=== PATIENT | female | born 1950 | race Caucasian/White ===

== ENCOUNTER → 2016-08-12 | Outpatient (CLI) | payer MEDICARE ==
--- NOTE | 2016-08-13 13:04 | MM ---
Reason for exam: screening (asymptomatic). Last mammogram was performed 1 year and 11 months ago. History: Patient is postmenopausal. Took estrogen for 6 years 7 months beginning at age 49. Took progesterone for 6 years 7 months beginning at age 49. Physical Findings: A clinical breast exam by your physician is recommended on an annual basis and results should be correlated with mammographic findings. MG 3D Screening Mammo W/Cad Bilateral CC and MLO view(s) were taken. Prior study comparison: September 19, 2014, bilateral MG screening mammo w CAD. June 01, 2013, bilateral digital screening mammo w/CAD. There are scattered fibroglandular densities. There is no discrete abnormality. ASSESSMENT: Negative, BI-RAD 1 RECOMMENDATION: Routine screening mammogram of both breasts in 1 year.
== END | disposition home or self-care (01) ==
LOC: RADMAMWWP 13:26
PROVIDERS: ATTEND Internal Medicine
DX: Z12.31 Encounter for screening mammogram for malignant neoplasm of breast (principal)
CPT/HCPCS: 77063; G0202

== ENCOUNTER → 2016-09-06 | Outpatient (CLI) | payer MEDICARE ==
--- NOTE | 2016-09-06 11:49 | CT ---
EXAMINATION TYPE: CT sinus wo con DATE OF EXAM: 09/06/2016 9:50 AM COMPARISON: NONE HISTORY: Chronic Sinusitis CT DLP: 583.7 mGycm CONTRAST: None The paranasal sinuses are examined in the axial plane at 2 mm thick sections. Reconstructed images i n the coronal plane were obtained. There is dental amalgam scatter artifact The maxillary sinuses are clear. There is some opacification of a posterior left ethmoid air cell. B ilateral ethmoidectomies been performed. Bilateral uncinectomies been performed. The sphenoid sinuse s are clear. The frontal sinuses are clear. The right frontal sinus is aplastic. The septum is evaluated. There is mild septal deviation. IMPRESSIONS: 1. Postsurgical changes with bilateral uncinectomies and ethmoidectomies. 2. Significant mucosal thickening within the paranasal sinuses is not evident. Some mild opacificatio n is within left ethmoid air cell residuals.
== END | disposition home or self-care (01) ==
LOC: RADCTMAIN 09:28
PROVIDERS: ATTEND Otolaryngology
DX: J34.89 Other specified disorders of nose and nasal sinuses (principal); J32.9 Chronic sinusitis, unspecified; Z98.890 Other specified postprocedural states
CPT/HCPCS: 70486

== ENCOUNTER 2016-11-04 09:56 | Day surgery (SDC) | payer MEDICARE ==
[2016-11-01 15:13] VITALS: BMI 22.6
[~2016-11-04 09:56] MED LIST: ACETAMINOPHEN TAB 500 MG TAB PO ONE; DEXAMETHASONE SOD PHOSPHATE 10 MG/ML 1 ML VIAL IV ONE; DEXAMETHASONE SOD PHOSPHATE 4 MG/ML 1 ML VIAL IV ONE; FAMOTIDINE 20 MG/2 ML VIAL IV ONE; HYDROmorphone 1 MG/ML 1 ML SYRINGE IVP PRN; LACTATED RINGERS 1,000 ML IV SCH; ONDANSETRON 4 MG/2 ML VIAL IVP ONE; OXYMETAZOLINE 0.05% NASL SPRAY 15 ML ONE; Pre Op ABX Message 1 EACH MISC MISCELLANE ONE
[2016-11-04] MEDS ORDERED: LIDOCAINE 1% 20 ML VIAL (10MG/ML) FOR IV START INTRADERMA ONE (13:54)
[2016-11-04] MEDS: OXYMETAZOLINE 0.05% NASL SPRAY 15 ML NASAL ONE ×5 (13:54→14:24)
[2016-11-04] MEDS ORDERED: fentaNYL (PF) 50 MCG/ML 2 ML AMP ONE (15:32)
[2016-11-04] MEDS ORDERED: SUCCINYLCHOLINE CHLORIDE 100 MG/5 ML SYR IV ONE (15:32)
[2016-11-04] MEDS ORDERED: ROCURONIUM BROMIDE 10 MG/ML 10 ML VIAL IV ONE (15:32)
[2016-11-04] MEDS ORDERED: LIDOCAINE 1% INJ 10MG/ML (20 ML MDV) ONE (15:32)
[2016-11-04] MEDS ORDERED: NEOSTIGMINE 1 MG/ML 10 ML VIAL ONE (15:32)
[2016-11-04] MEDS ORDERED: EPINEPHrine 1 MG/ML (MDV) 30 ML VIAL TOPICAL ONE (15:32)
[2016-11-04] MEDS ORDERED: DEXAMETHASONE SOD PHOS (MDV) 100 MG/10 ML VIAL ONE (15:32)
[2016-11-04] MEDS ORDERED: MIDAZOLAM 2 MG/2 ML VIAL ONE (15:32)
[2016-11-04] MEDS ORDERED: BUPIVACAIN-EPI 0.5%-1:200,000 30 ML VIAL SQ ONE (15:32)
[2016-11-04] MEDS ORDERED: PROPOFOL 10 MG/ML 20 ML VIAL IV ONE (15:32)
[2016-11-04] MEDS ORDERED: GLYCOPYRROLATE 0.2 MG/ML 2 ML VIAL ONE (15:32)
[2016-11-04] MEDS ORDERED: LIDOCAINE 1%-EPI 1:100,000 20 ML VIAL SQ ONE (15:32)
[2016-11-04] MEDS ORDERED: EPINEPHrine (PF) 1 MG/ML AMP MISCELLANE ONE (15:32)
[2016-11-04] MEDS ORDERED: LACTATED RINGERS 1,000 ML IV ONE (16:26)
--- NOTE | 2016-11-04 16:37 | P.OP ---
Date of Procedure: 11/04/16 Preoperative Diagnosis: Chronic maxillary and ethmoid sinusitis Postoperative Diagnosis: Same Procedure(s) Performed: Functional endoscopic sinus surgery with total ethmoidectomy and maxillary antrostomies with removal of diseased tissue bilaterally Anesthesia: LEONORA Surgeon: Kurtis Wilcox Estimated Blood Loss (ml): 25 Pathology: other (Sinonasal) Condition: stable Indications for Procedure: This patient's been suffering with chronic sinus issues. She is midface pain pressure drainage discolored postnasal drainage. Her sense of smell is absent. CAT scan evaluation shows chronic sinusitis maxillary ethmoid. Has failed medical therapy. Operative Findings: Patient had thick and diseased mucosa the maxillary and ethmoid sinuses bilaterally Description of Procedure: This patient was taken to the operative room and placed in the supine position. A general inhalation anesthetic was administered to the patient by mask and subsequently intubated with a cuffed endotracheal tube by the department of anesthesia with a functioning IV line in place. The patient was monitored throughout the entire case by the department of anesthesia. The nose was topically anesthetized and then injected along the lateral nasal wall middle turbinate region. After 10 minutes were allowed wait for full vasoconstrictive effects to take place infraturbinal maxillary antrostomies were performed bilaterally with a Reynaldo an antral punch. We open and widened the infraturbinal maxillary antrostomies entered max her sinuses and removed diseased tissue. We then opened the supraturbinal region and the x-ray sinuses were opened both above and below the inferior turbinates with diseased tissue removed. We then did a total ethmoidectomy and entered the ethmoids and followed the fovea frontalis through the basal lamella into the posterior ethmoid air cells. A total ethmoidectomy was performed. We removed all the intersinus septations and diseased tissue of the anterior posterior ethmoids bilaterally. The patient tolerated this well and the follow-up is scheduled for 1 week. Xerogel was inserted. Patient is to contact me if any problems should arise in the interim.
[2016-11-04 16:41] VITALS: TEMP 98.1
[2016-11-04 16:52] VITALS: RESP 18
[2016-11-04 17:20] VITALS: PULSE 57
[2016-11-04 17:35] VITALS: BP 131/65
== END 2016-11-04 17:52 | disposition home or self-care (01) ==
LOC: OR 09:56
PROVIDERS: ATTEND Otolaryngology
DX: J32.0 Chronic maxillary sinusitis (principal); J32.2 Chronic ethmoidal sinusitis; E07.9 Disorder of thyroid, unspecified; F39 Unspecified mood [affective] disorder; Z79.899 Other long term (current) drug therapy
CPT/HCPCS: 31267; 31255; J0171; J2250; J1100 ×2; J2710; J2001; J3010; J0330; J2704; 88305

== ENCOUNTER → 2018-01-17 | Outpatient (CLI) | payer MEDICARE ==
--- NOTE | 2018-01-19 11:47 | MM ---
Reason for exam: screening (asymptomatic). Last mammogram was performed 1 year and 5 months ago. History: Patient is postmenopausal. Took estrogen for 6 years 7 months beginning at age 49. Took progesterone for 6 years 7 months beginning at age 49. Physical Findings: A clinical breast exam by your physician is recommended on an annual basis and results should be correlated with mammographic findings. MG 3D Screening Mammo W/Cad Bilateral CC and MLO view(s) were taken. Prior study comparison: August 12, 2016, bilateral MG 3d screening mammo w/cad. September 19, 2014, bilateral MG screening mammo w CAD. There are scattered fibroglandular densities. No significant changes when compared with prior studies. ASSESSMENT: Negative, BI-RAD 1 RECOMMENDATION: Routine screening mammogram of both breasts in 1 year.
== END | disposition home or self-care (01) ==
LOC: RADMAMWWP 10:47
PROVIDERS: ATTEND Obstetrics & Gynecology
DX: Z12.31 Encounter for screening mammogram for malignant neoplasm of breast (principal)
CPT/HCPCS: 77063; 77067

== ENCOUNTER 2019-02-14 08:27 | Day surgery (SDC) | payer MEDICARE ==
[2019-02-12 09:02] VITALS: BMI 22.1
[~2019-02-14 08:27] MED LIST changes: -ACETAMINOPHEN TAB 500 MG TAB PO ONE; -DEXAMETHASONE SOD PHOSPHATE 10 MG/ML 1 ML VIAL IV ONE; -DEXAMETHASONE SOD PHOSPHATE 4 MG/ML 1 ML VIAL IV ONE; -FAMOTIDINE 20 MG/2 ML VIAL IV ONE; -HYDROmorphone 1 MG/ML 1 ML SYRINGE IVP PRN; +LIDOCAINE 1% 20 ML VIAL (10MG/ML) FOR IV START INTRADERMA PRN; -ONDANSETRON 4 MG/2 ML VIAL IVP ONE; -OXYMETAZOLINE 0.05% NASL SPRAY 15 ML ONE; -Pre Op ABX Message 1 EACH MISC MISCELLANE ONE
[2019-02-14] MEDS ORDERED: LACTATED RINGERS 1,000 ML IV ONE (08:38)
[2019-02-14] MEDS ORDERED: LIDOCAINE 1% 20 ML VIAL (10MG/ML) FOR IV START INTRADERMA ONE (08:39)
[2019-02-14 08:44] VITALS: TEMP 97.5
[2019-02-14] MEDS ORDERED: PROPOFOL 10 MG/ML 20 ML VIAL IV ONE (09:00)
[2019-02-14 09:25] VITALS: PULSE 65
[2019-02-14 09:36] VITALS: BP 106/69; RESP 16
--- NOTE | 2019-02-14 10:02 | P.PCN ---
Date of Procedure: 02/14/19 Procedure(s) Performed: BRIEF HISTORY: Patient is a 68-year-old pleasant female, scheduled for an elective colonoscopy as a part of screening for colorectal neoplasia. PROCEDURE PERFORMED: Colonoscopy. PREOPERATIVE DIAGNOSIS: Screening for colon cancer. IV sedation per Anesthesia. PROCEDURE: After informed consent was obtained, the patient, was brought into the endoscopy unit. IV sedation was administered by Anesthesia under continuous monitoring. Digital rectal examination was normal. Initially the Olympus CF-160 flexible video colonoscope was then inserted in the rectum, gradually advanced into the cecum without any difficulty. Careful examination was performed as the scope was gradually being withdrawn. Ileocecal valve and the appendiceal orifice were visualized and appeared normal. Prep was excellent. Mucosa of the cecum, ascending colon, transverse colon, descending colon, sigmoid colon, and rectum appeared normal. Retroflexion was performed in the rectum and no lesions were seen. The patient tolerated the procedure well. IMPRESSION: Normal-appearing colon from rectum to cecum with no evidence of colorectal neoplasia . RECOMMENDATIONS: Findings of this examination were discussed with the patient as well as her family. She was advised to have a repeat screening colonoscopy in 10 years.
== END 2019-02-14 09:50 | disposition home or self-care (01) ==
LOC: ORWHC2ENDO 08:27
PROVIDERS: ATTEND Internal Medicine Gastroenterology
DX: Z12.11 Encounter for screening for malignant neoplasm of colon (principal); K21.9 Gastro-esophageal reflux disease without esophagitis; E07.9 Disorder of thyroid, unspecified; Z79.890 Hormone replacement therapy; Z79.899 Other long term (current) drug therapy
CPT/HCPCS: J2704; G0121

== ENCOUNTER → 2019-02-21 | Outpatient (CLI) | payer MEDICARE ==
--- NOTE | 2019-02-21 13:27 | XR ---
EXAMINATION TYPE: XR chest 2V DATE OF EXAM: 02/21/2019 COMPARISON: 11/06/2012 HISTORY: Chronic cough for 6 months TECHNIQUE: Frontal and lateral views of the chest are obtained. FINDINGS: There is no focal air space opacity, pleural effusion, or pneumothorax seen. The cardiac silhouette size is within normal limits. There is minimal biapical pleural parenchymal scarring and pulmonary hyperinflation. The osseous structures are intact. Very mild degenerative changes of the th oracic spine. IMPRESSION: No acute cardiopulmonary process. Slight pulmonary hyperinflation is presumed to represe nt degree of inspiration and no other evidence of COPD as seen on radiograph however relation with pu lmonary function tests is recommended.
== END | disposition home or self-care (01) ==
LOC: RADXRMAIN 12:04
PROVIDERS: ATTEND Otolaryngology
DX: R05 Cough (principal)
CPT/HCPCS: 71046

== ENCOUNTER → 2019-03-07 | Outpatient (CLI) | payer MEDICARE ==
--- NOTE | 2019-03-07 13:58 | FL ---
MODIFIED SWALLOW / DEGLUTITION STUDY DATE OF EXAM: 03/07/2019 CLINICAL HISTORY: 68-year-old female cough and dysphagia, globus sensation, hoarseness, sensation of fluid in the upper chest. TECHNIQUE: Deglutition study is performed utilizing thin liquid barium,, barium thick applesauce, an d barium coated cracker. Total fluoroscopy time: 1 minute 15 seconds. Total images: None. Real-time fluoroscopy support was provided to speech pathology. COMPARISON: None. FINDINGS: The oral and pharyngeal phases show satisfactory initiation and propagation with all modalities teste d. Normal mastication is seen with solid modalities tested. There is no evidence of penetration or aspiration with any modality tested. Fluoroscopy is performed over the esophagus and delayed clearanc e is noted from the esophagus with solid consistencies especially along the proximal third portion. L iquids help clear this area but some persistent stasis is noted along the distal third of the esophag us. IMPRESSION: 1. No penetration or aspiration. 2. Some delayed clearance from the esophagus. Consider esophagram to assess for any abnormal narrowin g or dysmotility. Please refer to speech therapist notes for further details if necessary.
== END | disposition home or self-care (01) ==
LOC: RADFLMAIN 08:52
PROVIDERS: ATTEND Otolaryngology
DX: R13.10 Dysphagia, unspecified (principal); R05 Cough; R68.89 Other general symptoms and signs
CPT/HCPCS: 74230

== ENCOUNTER → 2019-03-07 | Outpatient (CLI) | payer MEDICARE ==
--- NOTE | 2019-03-07 20:52 | BD ---
EXAMINATION TYPE: Axial Bone Density DATE OF EXAM: 03/07/2019 COMPARISON: 09/19/2014 CLINICAL HISTORY: Height: 62.7 IN Weight: 122 LBS FRAX RISK QUESTIONS: History of Fracture in Adulthood: YES RT HAND AGE 68 RISK FACTORS HISTORY OF: History of Wrist Fracture: RT WRIST /HAND AGE 68 Family History of Osteoporosis: YES MOTHER Active: YES Postmenopausal woman: AGE 49 MEDICATIONS: Thyroid Medications: YES Which medication: Levothyroxine How Lon+ YEARS Additional Medications: VIT D, LEVOTHYROXINE, EXAM MEASUREMENTS: Bone mineral densitometry was performed using the Prezto System. Bone mineral density as measured about the Lumbar spine is: ----- L1-L4(G/cm2): 1.289 T Score Values are as follows: ----- L2: 0.9 ----- L3: 1.8 ----- L4: 1.0 ----- L1-L4: 0.9 Bone mineral density has: Decreased -2.3% since study of: 09/19/2014 Bone mineral density about the R hip (g/cm2): 0.927 Bone mineral density about the L hip (g/cm2): 0.950 T Score values are as follows: -----R Neck: -0.8 -----L Neck: -0.6 -----R Total: -0.5 -----L Total: -0.8 Bone mineral density has: Decreased -6.2% since study of: 09/19/2014 IMPRESSION: Normal (Values between +1 and -1 indicate normal bone mass). Consider repeating this study in 5 year s or sooner if there is some new clinical indication. NOTE: T-SCORE=SD OF THE YOUNG ADULT MEAN.
--- NOTE | 2019-03-08 14:27 | MM ---
Reason for exam: screening (asymptomatic). Last mammogram was performed 1 year and 2 months ago. History: Patient is postmenopausal. Took estrogen for 6 years 7 months beginning at age 49. Took progesterone for 6 years 7 months beginning at age 49. Physical Findings: A clinical breast exam by your physician is recommended on an annual basis and results should be correlated with mammographic findings. MG 3D Screening Mammo W/Cad Bilateral CC and MLO view(s) were taken. Prior study comparison: January 17, 2018, bilateral MG 3d screening mammo w/cad. August 12, 2016, bilateral MG 3d screening mammo w/cad. There are scattered fibroglandular densities. There is no discrete abnormality. ASSESSMENT: Negative, BI-RAD 1 RECOMMENDATION: Routine screening mammogram of both breasts in 1 year.
== END | disposition home or self-care (01) ==
LOC: RADMAMWWP 08:12
PROVIDERS: ATTEND Internal Medicine
DX: Z12.31 Encounter for screening mammogram for malignant neoplasm of breast (principal); Z78.0 Asymptomatic menopausal state
CPT/HCPCS: 77063; 77067; 77080

== ENCOUNTER → 2019-03-21 | Outpatient (CLI) | payer MEDICARE ==
--- NOTE | 2019-03-21 13:15 | FL ---
EXAMINATION TYPE: FL barium swallow DATE OF EXAM: 03/21/2019 CLINICAL HISTORY: Dysphagia. TECHNIQUE: A double contrast esophagram is performed utilizing air and barium. A total of 3.38 teresa viral of fluoroscopic time was utilized during procedure. 46 fluoroscopic images were saved during the examination. COMPARISON: Modified barium swallow dated 03/07/2019 FINDINGS: The esophagus shows normal abnormal motility as there is a blunted secondary wave. Primary peristaltic contraction is unremarkable however there is stasis of contrast in the esophagus cleared with multiple dry swallows or subsequent water. Stasis is small volume and seen within the mid to dis colby esophagus. Very small amount of gastroesophageal reflux is seen in the supine position. No delaye d emptying into the stomach. No evidence of hiatal hernia or stricture noted. IMPRESSION: 1. Mildly abnormal esophageal motility with a blunted secondary peristaltic wave resulting in small v olume stasis of contrast in the mid and distal esophagus persisting throughout the exam. This is mauricio red with multiple dry swallows or water. No stricture or hiatal hernia. 2. Very mild gastroesophageal reflux to the level of the distal third of the esophagus.
== END | disposition home or self-care (01) ==
LOC: RADUSWWP 10:51
PROVIDERS: ATTEND Otolaryngology
DX: K21.9 Gastro-esophageal reflux disease without esophagitis (principal); R93.3 Abnormal findings on diagnostic imaging of other parts of digestive tract
CPT/HCPCS: 74220

== ENCOUNTER 2019-09-08 16:58 | Observation (INO) | payer MEDICARE ==
--- NOTE | 2019-09-08 17:15 | ED ---
General Adult HPI - General Chief complaint: Urogenital Stated complaint: Lumbar Pain/Headache/Chills Time Seen by Provider: 09/08/19 17:11 Source: patient Mode of arrival: ambulatory Limitations: no limitations - History of Present Illness Initial comments: Patient presents the ED with her for evaluation. Patient states that she has had urinary frequency and dysuria for the past 2 days. Patient states that she was seen in an urgent care yesterday, and she was diagnosed with a UTI at that time. Patient states that she was started on a course of Macrobid, which she has been taking since yesterday. Patient states that she has developed a fever, chills, nausea and diffuse lumbar back pain today. She states that her urinary symptoms have improved, but are still present. Patient denies trauma or injury, leg pain/numbness/weakness, incontinence, urinary retention, hematuria, neck pain or stiffness, sore throat, cough or cold symptoms, chest pain, dyspnea, dizziness, abdominal pain, vomiting/diarrhea, or any other symptoms or complaints. - Related Data Home Medications Medication Instructions Recorded Confirmed Levothyroxine Sodium [Synthroid] 50 mcg PO DAILY 11/01/16 02/12/19 Cholecalciferol (Vitamin D3) 1,000 unit PO BID 02/12/19 02/12/19 [Vitamin D3] Fluticasone Propionate 1 spray EA NOSTRIL BID 02/12/19 02/12/19 L.acidoph,Paracasei, B.lactis 1 each PO DAILY 02/12/19 02/12/19 [Probiotic] Ranitidine HCl 150 mg PO DAILY 02/12/19 02/12/19 Allergies Allergy/AdvReac Type Severity Reaction Status Date / Time No Known Allergies Allergy Verified 09/08/19 17:03 Review of Systems ROS Statement: Those systems with pertinent positive or pertinent negative responses have been documented in the HPI. ROS Other: All systems not noted in ROS Statement are negative. Past Medical History Past Medical History: GERD/Reflux, Osteoarthritis (OA), Thyroid Disorder Additional Past Medical History / Comment(s): SINUS PROBLEMS, BACK PAIN. History of Any Multi-Drug Resistant Organisms: None Reported Past Surgical History: Hernia Repair, Orthopedic Surgery Additional Past Surgical History / Comment(s): SINUS PROCEDURES., INGUINAL HERNIA REPAIR, LEFT CARPAL TUNNEL, JUAN THUMB RELEASE., ENDOMETRIAL SURGERY Past Anesthesia/Blood Transfusion Reactions: No Reported Reaction Past Psychological History: No Psychological Hx Reported Smoking Status: Never smoker Past Alcohol Use History: Occasional Past Drug Use History: None Reported - Past Family History Mother Family Medical History: Cancer, Coronary Artery Disease (CAD) Additional Family Medical History / Comment(s): UTERINE CA General Exam Limitations: no limitations General appearance: alert, in no apparent distress Head exam: Present: atraumatic, normocephalic Eye exam: Present: normal appearance, EOMI ENT exam: Present: normal oropharynx, mucous membranes moist Neck exam: Present: other (Trachea is in midline). Absent: tenderness, meningismus Respiratory exam: Present: normal lung sounds bilaterally. Absent: respiratory distress, wheezes, rales, rhonchi Cardiovascular Exam: Present: normal rhythm, tachycardia, normal heart sounds, other (Normal radial pulses bilaterally) GI/Abdominal exam: Present: soft. Absent: distended, tenderness, guarding Extremities exam: Present: other (No evidence of lower extremity neurological deficit or saddle anesthesia). Absent: tenderness, pedal edema, calf tenderness Back exam: Present: full ROM. Absent: tenderness, CVA tenderness (R), CVA tenderness (L) Neurological exam: Present: alert, oriented X3. Absent: motor sensory deficit Psychiatric exam: Present: normal affect, normal mood Skin exam: Present: warm, dry, intact, normal color Course Vital Signs 09/08/19 16:59 Temperature 101.9 F H Pulse Rate 109 H Respiratory 18 Rate Blood Pressure 134/64 O2 Sat by Pulse 96 Oximetry - Reevaluation(s) Reevaluation #1: 09/08/19 19:40 Case, H&P, test results and ED management were discussed with Dr. Tai. He accepts hospital admission. He has no further recommendations at this time. 09/08/19 19:46 Patient states that her symptoms have improved with ED treatment, and she denies development of any new symptoms while in the ED. Patient remains alert and breathing comfortably. Patient and are aware the patient's test results, and patient agrees with hospital admission at this time. Medical Decision Making - Medical Decision Making Patient's blood pressure has been fine, and she has not been hypotensive while in the ED. Patient's lactic acid level is within normal limits. I suspect that the patient's febrile illness is likely secondary to pyelonephritis. Patient was given a dose of IV Rocephin as well as IV fluids while in the ED. Given that the patient has failed oral outpatient antibiotic treatment of her UTI, will admit the patient to the hospital for IV fluids and IV antibiotics while cultures are pending. Dr. Tai has accepted hospital admission. - Lab Data Result diagrams: 09/08/19 17:40 09/08/19 17:40 Lab Results 09/08/19 09/08/19 09/08/19 Range/Units 17:40 17:40 17:40 WBC 7.5 (3.8-10.6) k/uL RBC 4.16 (3.80-5.40) m/uL Hgb 13.6 (11.4-16.0) gm/dL Hct 41.0 (34.0-46.0) % MCV 98.4 (80.0-100.0) fL MCH 32.7 (25.0-35.0) pg MCHC 33.3 (31.0-37.0) g/dL RDW 12.5 (11.5-15.5) % Plt Count 231 (150-450) k/uL Neutrophils % 93 % Lymphocytes % 2 % Monocytes % 3 % Eosinophils % 1 % Basophils % 0 % Neutrophils # 7.0 (1.3-7.7) k/uL Lymphocytes # 0.2 L (1.0-4.8) k/uL Monocytes # 0.2 (0-1.0) k/uL Eosinophils # 0.1 (0-0.7) k/uL Basophils # 0.0 (0-0.2) k/uL Sodium 131 L (137-145) mmol/L Potassium 4.1 (3.5-5.1) mmol/L Chloride 98 (98-107) mmol/L Carbon Dioxide 26 (22-30) mmol/L Anion Gap 7 mmol/L BUN 15 (7-17) mg/dL Creatinine 0.63 (0.52-1.04) mg/dL Est GFR (CKD-EPI)AfAm >90 (>60 ml/min/1.73 sqM) Est GFR (CKD-EPI)NonAf >90 (>60 ml/min/1.73 sqM) Glucose 122 H (74-99) mg/dL Plasma Lactic Acid Jatinder (0.7-2.0) mmol/L Calcium 9.1 (8.4-10.2) mg/dL Total Bilirubin 0.5 (0.2-1.3) mg/dL AST 23 (14-36) U/L ALT 14 (4-34) U/L Alkaline Phosphatase 55 (38-126) U/L Total Protein 6.9 (6.3-8.2) g/dL Albumin 4.2 (3.5-5.0) g/dL Lipase 25 (23-300) U/L Urine Color Dark Yellow Urine Appearance Clear (Clear) Urine pH 7.5 (5.0-8.0) Ur Specific [place] 1.018 (1.001-1.035) Urine Protein Trace H (Negative) Urine Glucose (UA) Negative (Negative) Urine Ketones Negative (Negative) Urine Blood Negative (Negative) Urine Nitrite Positive H (Negative) Urine Bilirubin Negative (Negative) Urine Urobilinogen <2.0 (<2.0) mg/dL Ur Leukocyte Esterase Trace H (Negative) Urine RBC <1 (0-5) /hpf Urine WBC 7 H (0-5) /hpf Ur Squamous Epith Cells <1 (0-4) /hpf Urine Mucus Rare H (None) /hpf Influenza Type A RNA (Not Detectd) Influenza Type B (PCR) (Not Detectd) 09/08/19 09/08/19 Range/Units 17:40 17:40 WBC (3.8-10.6) k/uL RBC (3.80-5.40) m/uL Hgb (11.4-16.0) gm/dL Hct (34.0-46.0) % MCV (80.0-100.0) fL MCH (25.0-35.0) pg MCHC (31.0-37.0) g/dL RDW (11.5-15.5) % Plt Count (150-450) k/uL Neutrophils % % Lymphocytes % % Monocytes % % Eosinophils % % Basophils % % Neutrophils # (1.3-7.7) k/uL Lymphocytes # (1.0-4.8) k/uL Monocytes # (0-1.0) k/uL Eosinophils # (0-0.7) k/uL Basophils # (0-0.2) k/uL Sodium (137-145) mmol/L Potassium (3.5-5.1) mmol/L Chloride (98-107) mmol/L Carbon Dioxide (22-30) mmol/L Anion Gap mmol/L BUN (7-17) mg/dL Creatinine (0.52-1.04) mg/dL Est GFR (CKD-EPI)AfAm (>60 ml/min/1.73 sqM) Est GFR (CKD-EPI)NonAf (>60 ml/min/1.73 sqM) Glucose (74-99) mg/dL Plasma Lactic Acid Jatinder 0.8 (0.7-2.0) mmol/L Calcium (8.4-10.2) mg/dL Total Bilirubin (0.2-1.3) mg/dL AST (14-36) U/L ALT (4-34) U/L Alkaline Phosphatase (38-126) U/L Total Protein (6.3-8.2) g/dL Albumin (3.5-5.0) g/dL Lipase (23-300) U/L Urine Color Urine Appearance (Clear) Urine pH (5.0-8.0) Ur Specific [place] (1.001-1.035) Urine Protein (Negative) Urine Glucose (UA) (Negative) Urine Ketones (Negative) Urine Blood (Negative) Urine Nitrite (Negative) Urine Bilirubin (Negative) Urine Urobilinogen (<2.0) mg/dL Ur Leukocyte Esterase (Negative) Urine RBC (0-5) /hpf Urine WBC (0-5) /hpf Ur Squamous Epith Cells (0-4) /hpf Urine Mucus (None) /hpf Influenza Type A RNA Not Detected (Not Detectd) Influenza Type B (PCR) Not Detected (Not Detectd) - Radiology Data Radiology results: report reviewed (Noncontrast CT abdomen/pelvis is negative for renal/ureteral stones or any other acute finding) Disposition Clinical Impression: Acute febrile illness, Pyelonephritis Disposition: ADMITTED IP TO THIS HOSP Condition: Stable Is patient prescribed a controlled substance at d/c from ED?: No Referrals: Sina Sanders MD [Primary Care Provider] - 1-2 days Time of Disposition: 19:40
[2019-09-08] MEDS ORDERED: KETOROLAC 30 MG/ML 1 ML VIAL IVP STA (17:19)
[2019-09-08] MEDS ORDERED: MORPHINE SULFATE 4 MG/ML SYRINGE IV STA (17:19)
[2019-09-08] MEDS ORDERED: ONDANSETRON 4 MG/2 ML VIAL IVP STA (17:19)
[2019-09-08] MEDS ORDERED: SODIUM CHLORIDE 0.9% 1,000 ML IV ONE (17:19)
[2019-09-08 17:53] LABS: Basophils % (A) 0 %; Eosinophils # (A) 0.1 k/uL (0-0.7); Eosinophils % (A) 1 %; HGB 13.6 gm/dL (11.4-16.0); Lymphocytes # (A) 0.2 k/uL (1.0-4.8); Lymphocytes % (A) 2 %; MCH 32.7 pg (25.0-35.0); MCHC 33.3 g/dL (31.0-37.0); MCV 98.4 fL (80.0-100.0); Mean Platelet Volume 6.6; Monocytes # (A) 0.2 k/uL (0-1.0); Monocytes % (A) 3 %; Neutrophils % (A) 93 %; Platelet Count 231 k/uL (150-450); RBC 4.16 m/uL (3.80-5.40); RDW 12.5 % (11.5-15.5); WBC 7.5 k/uL (3.8-10.6)
[2019-09-08 17:55] LABS: Appearance,Urine Clear (Clear); Bilirubin,Urine Negative (Negative); Blood,Urine Negative (Negative); Color,Urine Dark Yellow; Glucose,Urine (UA) Negative (Negative); Ketones,Urine Negative (Negative); Leukocyte Esterase,Urine Trace (Negative); Mucus,Urine Rare /hpf; Nitrite,Urine Positive (Negative); PH, Urine 7.5 (5.0-8.0); Protein,Urine Trace (Negative); RBC,Urine <1 /hpf (0-5); Specific Gravity,Urine 1.018 (1.001-1.035); Squamous Epithelial Cell,Urine <1 /hpf (0-4); Urobilinogen,Urine <2.0 mg/dL (<2.0); WBC,Urine 7 /hpf (0-5)
[2019-09-08] MEDS ORDERED: cefTRIAXone IN SWFI 1,000 MG/10 ML SYRINGE IVP STA (18:01)
[2019-09-08 18:02] LABS: ALT 14 U/L (4-34); AST 23 U/L (14-36); African American GFR (CKD) >90 (>60 ml/min/1.73 sqM); Albumin 4.2 g/dL (3.5-5.0); Alkaline Phosphatase 55 U/L (38-126); Anion Gap 7 mmol/L; Blood Urea Nitrogen 15 mg/dL (7-17); Calcium 9.1 mg/dL (8.4-10.2); Carbon Dioxide 26 mmol/L (22-30); Chloride 98 mmol/L (98-107); Glucose 122 mg/dL (74-99); Non-African American GFR(CKD) >90 (>60 ml/min/1.73 sqM); Potassium 4.1 mmol/L (3.5-5.1); Sodium 131 mmol/L (137-145); Total Bilirubin 0.5 mg/dL (0.2-1.3); Total Protein 6.9 g/dL (6.3-8.2)
--- NOTE | 2019-09-08 19:26 | CT ---
EXAMINATION TYPE: CT abdomen pelvis wo con DATE OF EXAM: 09/08/2019 COMPARISON: None INDICATION: Back pain, fever and headache. DLP: 415.5 mGycm, Automated exposure control for dose reduction was used. CONTRAST: 0 mL of Isovue 300. Study performed without Oral Contrast TECHNIQUE: Axial images were obtained from above the diaphragm to the pubic rami in the axial plane a t 5 mm thick sections. Reconstructed images are reviewed on the computer in the coronal plane. FINDINGS: Limited CT sections are obtained the lung bases. The lung bases are clear. CT ABDOMEN: Liver: There is a hepatic cyst in the posterior right lobe liver. Spleen: Normal Pancreas: Normal Adrenal glands: The adrenal glands are normal. Gallbladder: Normal Kidneys: No masses are evident. No hydronephrosis is present. No cysts are present. No renal stone s are evident. No ureteral stones are evident. Aorta: Vascular calcification is within the aorta. Inferior vena cava: Normal. CT PELVIS: Scoliosis is through the lumbar spine Loops of bowel within the abdomen and pelvis are normal. Study is without oral contrast limiting bowel evaluation. Appendix: Not visualized. No suspicious tubular structures or inflammatory changes are evident. Urinary bladder: Normal. Genitourinary structures: Uterus appears normal. Adnexal regions are clear. Osseous structures: No suspicious lytic or sclerotic lesions. Scoliosis is present. Degenerative disc changes are through the lumbar spine. IMPRESSIONS: 1. No suspicious renal or ureteral stones. 2. Scoliosis. 3. Hepatic cyst
[2019-09-08] MEDS ORDERED: NALOXONE 0.4 MG/ML 1 ML VIAL IV PRN (19:41)
[2019-09-08] MEDS ORDERED: ONDANSETRON 4 MG/2 ML VIAL IVP PRN (19:41)
[2019-09-08] MEDS: SODIUM CHLORIDE 0.9% 1,000 ML IV SCH (19:57)
[2019-09-08] MEDS: ACETAMINOPHEN TAB 325 MG TAB PO PRN (21:49)
[2019-09-08] MEDS: MORPHINE SULFATE 4 MG/ML SYRINGE IV PRN (23:44)
--- NOTE | 2019-09-09 00:18 | P.HPIM ---
History of Present Illness H&P Date: 09/08/19 Chief Complaint: low back pain, dysuria 69 year old female with hypothyroidism patient presented due to worsening symptoms of dysuria, low back pain , chills and fever. symptoms started 2-3 days ago, she went to urgent care and was started on macrobid. however, she reports worsening symptoms of low back pain 8/10 in severity, with dysuria , fever, chillls, and low abd pain severe sharp pain suprapubic region, radiating to back, rated 8/10 in severity no alleviating or worsening factors. denies any chest pain , trouble breathing, or URI symptoms. denies any GI symptoms. denies any history of kidney stones or recurrent UTI. in the ED she had fever, no leukocytosis Review of Systems Pertinent positives as noted in HPI. All other systems were reviewed and are negative Past Medical History Past Medical History: GERD/Reflux, Osteoarthritis (OA), Thyroid Disorder Additional Past Medical History / Comment(s): SINUS PROBLEMS, BACK PAIN. History of Any Multi-Drug Resistant Organisms: None Reported Past Surgical History: Hernia Repair, Orthopedic Surgery Additional Past Surgical History / Comment(s): SINUS PROCEDURES., INGUINAL HERNIA REPAIR, LEFT CARPAL TUNNEL, JUAN THUMB RELEASE., ENDOMETRIAL SURGERY Past Anesthesia/Blood Transfusion Reactions: No Reported Reaction Past Psychological History: No Psychological Hx Reported Smoking Status: Never smoker Past Alcohol Use History: Occasional Past Drug Use History: None Reported - Past Family History Mother Family Medical History: Cancer, Coronary Artery Disease (CAD) Additional Family Medical History / Comment(s): UTERINE CA Medications and Allergies Home Medications Medication Instructions Recorded Confirmed Type Levothyroxine Sodium [Synthroid] 50 mcg PO DAILY 11/01/16 02/12/19 History Cholecalciferol (Vitamin D3) 1,000 unit PO BID 02/12/19 02/12/19 History [Vitamin D3] Fluticasone Propionate 1 spray EA NOSTRIL BID 02/12/19 02/12/19 History L.acidoph,Paracasei, B.lactis 1 each PO DAILY 02/12/19 02/12/19 History [Probiotic] Ranitidine HCl 150 mg PO DAILY 02/12/19 02/12/19 History Allergies Allergy/AdvReac Type Severity Reaction Status Date / Time No Known Allergies Allergy Verified 09/08/19 17:03 Physical Exam Vitals: Vital Signs Temp Pulse Resp BP Pulse Ox 09/08/19 16:59 101.9 F H 109 H 18 134/64 96 Intake and Output 09/08/19 09/08/19 09/08/19 06:59 14:59 22:59 Other: Weight 56.699 kg Constitutional: No acute distress, conversant, pleasant Eyes: Anicteric sclerae, moist conjunctiva, no lid-lag Pupils equal round reactive to light ENMT: NC/AT Oropharynx clear, no erythema, exudates Neck: Supple, FROM, no masses, or JVD No carotid bruits No thyromegaly Lungs: Clear to auscultation Clear to percussion Normal respiratory effort, no accessory muscle use Cardiovascular: Heart regular in rate and rhythm, No murmurs, gallops, or rubs No peripheral edema Abdominal: Soft, no CVA tenderness suprapubic discomfort to deep palpation , no guarding, rebound or rigidity Abdomen moving with respiration Normoactive bowel sounds No hepatomegaly, No splenomegaly No palpable mass No abdominal wall hernia noted Skin: Normal temperature, tone, texture, turgor No induration No subcutaneous nodules No rash, lesions No ulcers Extremities: No digital cyanosis No clubbing Pedal pulses intact and symmetrical Radial pulses intact and symmetrical No calf tenderness Psychiatric: Alert and oriented to person, place and time Appropriate affect fair judgement Neuro Muscles Strength 5/5 in all 4 extremities Sensation to light touch grossly present throughout Cranial nerves II-XII grossly intact No focal sensory deficits Lymphatics: no palpable cervical or supraclavicular , or inguinal lymph nodes Results CBC & Chem 7: 09/08/19 17:40 09/08/19 17:40 Labs: Abnormal Lab Results - Last 24 Hours (Table) 09/08/19 09/08/19 09/08/19 Range/Units 17:40 17:40 17:40 Lymphocytes # 0.2 L (1.0-4.8) k/uL Sodium 131 L (137-145) mmol/L Glucose 122 H (74-99) mg/dL Urine Protein Trace H (Negative) Urine Nitrite Positive H (Negative) Ur Leukocyte Esterase Trace H (Negative) Urine WBC 7 H (0-5) /hpf Urine Mucus Rare H (None) /hpf Assessment and Plan Assessment: 69-year-old female with hypothyroidism comes in due to worsening urinary symptoms not improving with Macrobid admitted under observation with anticipated length of stay of less than 2 midnights Plan: sepsis 2/2 UTI follow up cultures rocephine IVPB symptomatic control CT of the pelvis and abd, no acute abnormalities IVF hydration hypothyroid, continue home meds DVT PPx, mechanical CODE STATUS: full code Anticipated length of stay < than [address]: home A total of 60 minutes was spent on the care of this complex patient more than 50% of the time was spent in counseling and care coordination.
[2019-09-09] MEDS: ACETAMINOPHEN TAB 325 MG TAB PO PRN ×2 (03:56→22:10)
[2019-09-09] MEDS: SODIUM CHLORIDE 0.9% 1,000 ML IV SCH (05:25)
[2019-09-09] MEDS: LEVOTHYROXINE 50 MCG TAB PO SCH (05:31)
[2019-09-09 06:21] LABS: ALT 13 U/L (4-34); AST 22 U/L (14-36); African American GFR (CKD) >90 (>60 ml/min/1.73 sqM); Albumin 3.1 g/dL (3.5-5.0); Alkaline Phosphatase 42 U/L (38-126); Anion Gap 6 mmol/L; Blood Urea Nitrogen 15 mg/dL (7-17); Calcium 8.1 mg/dL (8.4-10.2); Carbon Dioxide 24 mmol/L (22-30); Chloride 103 mmol/L (98-107); Glucose 105 mg/dL (74-99); Non-African American GFR(CKD) 90 (>60 ml/min/1.73 sqM); Sodium 133 mmol/L (137-145); Total Bilirubin 0.2 mg/dL (0.2-1.3); Total Protein 5.5 g/dL (6.3-8.2)
[2019-09-09] MEDS: MORPHINE SULFATE 4 MG/ML SYRINGE IV PRN (07:54)
[2019-09-09] MEDS: PANTOPRAZOLE 40 MG TABLET PO SCH (07:55)
--- NOTE | 2019-09-09 09:25 | P.PN ---
Subjective Progress Note Date: 09/09/19 The patient is examined at bedside apparently admitted with sepsis due to UTI after failed outpatient therapy with Macrobid that she started on Tuesday morning, patient was febrile in the ER without any leukocytosis and was hemodynamically stable. She complains of lower back pain, and headaches and mild nausea today. Objective - Vital Signs Vital signs: Vital Signs Temp 98.8 F 09/09/19 07:00 Pulse 80 09/09/19 07:00 Resp 17 09/09/19 07:00 BP 114/66 09/09/19 07:00 Pulse Ox 90 L 09/09/19 07:00 Intake & Output 09/08/19 09/09/19 09/09/19 18:59 06:59 18:59 Intake Total 1300 Balance 1300 Weight 56.699 kg 56.699 kg Intake: Intake, IV Titration 200 Amount cefTRIAXone 1 gm In 200 Sodium Chloride 0.9% 50 ml @ 100 mls/hr IVPB Q24H [facility] Rx#:[id number] Oral 1100 Other: Voiding Method Toilet - Exam Constitutional: No acute distress, conversant, pleasant Eyes: Anicteric sclerae, moist conjunctiva, no lid-lag, PERRLA ENMT: NC/AT,Oropharynx clear, no erythema, exudates Neck:Supple, FROM, no masses, or JVD, No carotid bruits; No thyromegaly Lungs: Clear to auscultation, Clear to percussion, Normal respiratory effort, no accessory muscle use Cardiovascular: Heart regular in rate and rhythm, No murmurs, gallops, or rubs no peripheral edema Abdominal: Soft Nontender, nom distended, no guarding, no rebound or rigidity, Normoactive bowel sounds No hepatomegaly, No splenomegaly, No palpable mass No abdominal wall hernia noted Skin: Normal temperature, tone, texture, turgor, No induration No subcutaneous nodules, No rash, lesions, No ulcers Extremities:No digital cyanosis No clubbing, Pedal pulses intact and symmetrical Radial pulses intact and symmetrical Normal gait and station, No calf tenderness Psychiatric: Alert and oriented to person, place and time, Appropriate affect I ntact judgement Neuro: Muscles Strength 5/5 in all 4 extremities, Sensation to light touch gross ly present throughout, Cranial nerves II-XII grossly intact. No focal sensory deficits - Labs CBC & Chem 7: 09/08/19 17:40 09/09/19 05:28 Labs: Abnormal Lab Results - Last 24 Hours (Table) 09/08/19 09/08/19 09/08/19 Range/Units 17:40 17:40 17:40 Lymphocytes # 0.2 L (1.0-4.8) k/uL Sodium 131 L (137-145) mmol/L Glucose 122 H (74-99) mg/dL Calcium (8.4-10.2) mg/dL Total Protein (6.3-8.2) g/dL Albumin (3.5-5.0) g/dL Urine Protein Trace H (Negative) Urine Nitrite Positive H (Negative) Ur Leukocyte Esterase Trace H (Negative) Urine WBC 7 H (0-5) /hpf Urine Mucus Rare H (None) /hpf 09/09/19 Range/Units 05:28 Lymphocytes # (1.0-4.8) k/uL Sodium 133 L (137-145) mmol/L Glucose 105 H (74-99) mg/dL Calcium 8.1 L (8.4-10.2) mg/dL Total Protein 5.5 L (6.3-8.2) g/dL Albumin 3.1 L (3.5-5.0) g/dL Urine Protein (Negative) Urine Nitrite (Negative) Ur Leukocyte Esterase (Negative) Urine WBC (0-5) /hpf Urine Mucus (None) /hpf Assessment and Plan Assessment: Sepsis due to UTI * Patient afebrile overnight 100.3 at approximately 2:30 in the morning continue empiric IV antibiotics with Rocephin * No leukocytosis noted and patient is hemodynamically stable * Urine cultures are pending, will order chest x-ray and blood cultures are also pending * Continue IV fluids UTI * Follow-up urine cultures and sensitivities Hypothyroidism * Resume levothyroxine GERD * Resume PPI therapy Headaches * Continue Toradol and Reglan when necessary will DC morphine Disposition Anticipated discharge : 1-2 days following cultures and sensitivities
--- NOTE | 2019-09-09 10:29 | XR ---
EXAMINATION TYPE: XR chest 2V DATE OF EXAM: 09/09/2019 HISTORY: SOA. REFERENCE: Previous study dated 02/21/2019. FINDINGS: Lung volumes are prominent. Heart size upper limits of normal. There are diffuse increased markings. These may have increased slightly from previous. There is blunting of the left CP angle and I cannot exclude a small left effusion. IMPRESSION: 1. COPD. 2. SMALL LEFT EFFUSION. 3. GENERALIZED INCREASED MARKINGS MAY REFLECT BRONCHITIS. INTERSTITIAL EDEMA SUPERIMPOSED UPON ABNORM AL LUNG ARCHITECTURE COULD GIVE A SIMILAR APPEARANCE. PLEASE CORRELATE TO EXCLUDE CONGESTIVE HEART FA ILURE.
[2019-09-09] MEDS: KETOROLAC 30 MG/ML 1 ML VIAL IVP PRN ×2 (12:47→22:10)
[2019-09-09] MEDS: METOCLOPRAMIDE 5 MG/ML 2 ML VIAL IVP PRN ×2 (12:47→22:10)
[2019-09-09 14:46] VITALS: RESP 16
[2019-09-10] MEDS: SODIUM CHLORIDE 0.9% 1,000 ML IV SCH ×3 (00:44→10:28)
[2019-09-10] MEDS: LEVOTHYROXINE 50 MCG TAB PO SCH (06:12)
[2019-09-10 07:17] LABS: Basophils % (A) 0 %; Eosinophils # (A) 0.1 k/uL (0-0.7); Eosinophils % (A) 3 %; HCT 37.5 % (34.0-46.0); HGB 11.9 gm/dL (11.4-16.0); Lymphocytes # (A) 0.4 k/uL (1.0-4.8); Lymphocytes % (A) 17 %; MCH 31.9 pg (25.0-35.0); MCHC 31.8 g/dL (31.0-37.0); MCV 100.2 fL (80.0-100.0); Monocytes # (A) 0.2 k/uL (0-1.0); Monocytes % (A) 8 %; Neutrophils # (A) 1.7 k/uL (1.3-7.7); Neutrophils % (A) 67 %; Platelet Count 210 k/uL (150-450); RBC 3.75 m/uL (3.80-5.40); RDW 12.4 % (11.5-15.5); WBC 2.5 k/uL (3.8-10.6)
[2019-09-10 07:27] LABS: ALT 16 U/L (4-34); AST 25 U/L (14-36); African American GFR (CKD) >90 (>60 ml/min/1.73 sqM); Albumin 3.2 g/dL (3.5-5.0); Alkaline Phosphatase 47 U/L (38-126); Anion Gap 6 mmol/L; Blood Urea Nitrogen 11 mg/dL (7-17); Calcium 8.5 mg/dL (8.4-10.2); Carbon Dioxide 24 mmol/L (22-30); Chloride 106 mmol/L (98-107); Glucose 87 mg/dL (74-99); Non-African American GFR(CKD) >90 (>60 ml/min/1.73 sqM); Potassium 4.1 mmol/L (3.5-5.1); Sodium 136 mmol/L (137-145); Total Bilirubin 0.2 mg/dL (0.2-1.3); Total Protein 5.8 g/dL (6.3-8.2)
[2019-09-10] MEDS: PANTOPRAZOLE 40 MG TABLET PO SCH (07:30)
[2019-09-10 08:06] VITALS: BP 132/75; PULSE 70; TEMP 98.4
--- NOTE | 2019-09-10 12:08 | P.DS ---
Providers Date of admission: 09/08/19 19:42 Expected date of discharge: 09/10/19 Attending physician: Kalpana Tai MD Primary care physician: [facility] Course: 69-year-old female with PMH of hypothyroidism initially presented to the ED with symptoms of dysuria, lower back pain, fever and chills. She did go to an urgent care center for which she was given Macrobid for UTI but symptoms persisted which prompted her to come to the ED. Patient was febrile in the ED with T-max of 102 Fahrenheit. She was also tachycardic with pulse of 99 and hypotensive with BP 97/61 which responded to fluids. She did meet sepsis criteria. Urinalysis was positive for nitrite. Patient was started on Rocephin and admitted for further observation. Urine culture was not collected during her hospitalization. She did improve however on Rocephin. Patient was seen and examined. No acute events overnight. Patient reports resolution of her dysuria. No flank pain. She denies any fever or chills. She denies any chest pain, shortness of breath or palpitations. No nausea or vomiting. No fever or chills. Wanting to go home. General: [non toxic], [no distress], [appears at stated age] Derm: [warm], [dry] Head: [atraumatic], [normocephalic], [symmetric] Eyes: [EOMI], [no lid lag], [anicteric sclera] Mouth: [no lip lesion], [mucus membranes moist] Cardiovascular: [S1S2 reg], [no murmur], [positive DP pulse bilateral], Lungs: [CTA bilateral], [no rhonchi, no rales] , [no accessory muscle use] Abdominal: [soft], [ nontender to palpation], [no guarding], [no appreciable organomegaly] Ext: [no gross muscle atrophy], [no edema], [no contractures] Neuro: [no focal neuro deficits] Psych: [Alert], [oriented], [appropriate affect] UTI sepsis Leukopenia Macrocytosis Hypothyroidism Unfortunately, urine cultures have not been collected at this time. Patient is feeling better and does not meet sepsis criteria at this time. She is hemodynamically stable. Her leukopenia could be related to infused IVF and hemodilution. She has macrocytosis to be followed by PCP. Synthroid has been resumed as her home medication for hypothyroidism. Patient has responded well to Rocephin. Since there is no urine culture, which was collected this morning, will discharge patient home on Ceftin to complete a total of 10 days. I will contact her if her antibiotics need to be altered. Follow-up with PCP within 3 days. Patient verbalized understanding of the plan. Pertinent Studies: CT abdomen and pelvis, chest x-ray Patient Condition at Discharge: Stable Plan - Discharge Summary Discharge Rx Participant: No New Discharge Prescriptions: New Cefuroxime Axetil [Ceftin] 500 mg PO BID 8 Days #16 tab Continue Levothyroxine Sodium [Synthroid] 50 mcg PO DAILY L.acidoph,Paracasei, B.lactis [Probiotic] 1 cap PO DAILY SUMAtriptan SUCCINATE [Imitrex] 50 mg PO Q8H PRN PRN Reason: Headache Sertraline [Zoloft] 50 mg PO HS Propylene Glycol/Peg 400 [Systane Ultra 0.4-0.3% Eye Drp] 1 drop BOTH EYES TID PRN PRN Reason: Dry Eye(S) Omeprazole 20 mg PO BID Discontinued Nitrofurantoin Monohyd/M-Cryst [Macrobid] 100 mg PO BID Discharge Medication List Levothyroxine Sodium [Synthroid] 50 mcg PO DAILY 11/01/16 [History] L.acidoph,Paracasei, B.lactis [Probiotic] 1 cap PO DAILY 02/12/19 [History] Omeprazole 20 mg PO BID 09/09/19 [History] Propylene Glycol/Peg 400 [Systane Ultra 0.4-0.3% Eye Drp] 1 drop BOTH EYES TID PRN 09/09/19 [History] SUMAtriptan SUCCINATE [Imitrex] 50 mg PO Q8H PRN 09/09/19 [History] Sertraline [Zoloft] 50 mg PO HS 09/09/19 [History] Cefuroxime Axetil [Ceftin] 500 mg PO BID 8 Days #16 tab 09/10/19 [Rx] Follow up Appointment(s)/Referral(s): Sina Sanders MD [Primary Care Provider] - 1-2 days Activity/Diet/Wound Care/Special Instructions: Diet: Regular Follow-up with PCP within 3 days of discharge. Take all medications as advised. We will call you if there is a need to switch antibiotics when urine culture comes back. Discharge Disposition: HOME SELF-CARE
== END 2019-09-10 11:45 | disposition home or self-care (01) ==
LOC: EC 16:58 → 4SSUR 19:42
PROVIDERS: ADMIT Internal Medicine; ATTEND Internal Medicine
DX: N39.0 Urinary tract infection, site not specified (principal); D75.89 Other specified diseases of blood and blood-forming organs; D72.819 Decreased white blood cell count, unspecified; E03.9 Hypothyroidism, unspecified; R51 Headache; K21.9 Gastro-esophageal reflux disease without esophagitis; M19.90 Unspecified osteoarthritis, unspecified site; J44.9 Chronic obstructive pulmonary disease, unspecified; M41.9 Scoliosis, unspecified; K76.89 Other specified diseases of liver; Z79.890 Hormone replacement therapy; Z79.899 Other long term (current) drug therapy; Z80.49 Family history of malignant neoplasm of other genital organs; Z82.49 Family history of ischemic heart disease and other diseases of the circulatory system
CPT/HCPCS: 96376 ×2; 96361 ×3; 96365; 96366; 96375 ×2; 99285; 36415; 80053 ×3; 83605; 83690; 85025 ×2; 81001; 87040; 87086; 87502; 71046; 74176; G0378 ×3; J2270 ×2; J2765; J2405 ×2; J0696 ×2; J1885 ×2

== ENCOUNTER → 2019-12-12 | Outpatient (CLI) | payer MEDICARE ==
[2019-12-12 11:03] LABS: African American GFR (CKD) >90 (>60 ml/min/1.73 sqM); Blood Urea Nitrogen 17 mg/dL (7-17); Non-African American GFR(CKD) >90 (>60 ml/min/1.73 sqM)
--- NOTE | 2019-12-12 12:50 | CT ---
EXAMINATION TYPE: CT soft tissue neck w con DATE OF EXAM: 12/12/2019 COMPARISON: None HISTORY: 69-year-old female throat swelling, with congestion for 1+ years TECHNIQUE: Contiguous axial scanning of the soft tissues of the neck performed with IV Contrast, luci ent injected with 100 mL of Isovue 300. Coronal/sagittal reconstructions performed. CT DLP: 336.6 mGycm Automated exposure control for dose reduction was used. FINDINGS: Borderline ectasia ascending aorta 3.5 cm. Visualized upper lungs appear clear. Thyroid and submandibular glands appear satisfactory. Parotid glands show no gross abnormality. Visualized cranial structures, orbits and globes, and mastoid air cells appear clear. Moderate mucosal thickening left ethmoid air cells. There seems to be prior bilateral maxillary antre ctomies. Nasopharynx is clear. Mild lingual tonsillar hypertrophy. Otherwise, oropharynx is clear. Epiglottis and prevertebral soft tissues are within normal limits. Glottic and subglottic structures as well as the tracheal column appear clear. Scattered nonenlarged cervical lymph nodes in both sides of the neck measuring up to 7 mm short axis on the right. No osseous destructive process. IMPRESSION: MILD LINGUAL TONSILLAR HYPERTROPHY. OTHERWISE, NO SIGNIFICANT ABNORMALITY IDENTIFIED WITHIN THE SOFT TISSUES OF THE NECK
== END | disposition home or self-care (01) ==
LOC: RADCTMAIN 10:19
PROVIDERS: ATTEND Otolaryngology
DX: J35.1 Hypertrophy of tonsils (principal); R13.10 Dysphagia, unspecified
CPT/HCPCS: 82565; 84520; 70491; 36415; Q9967

== ENCOUNTER → 2020-05-12 | Outpatient (CLI) | payer MEDICARE ==
[2020-05-12 09:45] LABS: African American GFR (CKD) >90 (>60 ml/min/1.73 sqM); Blood Urea Nitrogen 21 mg/dL (7-17); Non-African American GFR(CKD) 90 (>60 ml/min/1.73 sqM)
--- NOTE | 2020-05-12 11:05 | CT ---
EXAMINATION TYPE: CT chest w con DATE OF EXAM: 05/12/2020 COMPARISON: CTA chest November 05, 2012 HISTORY: Persistent cough. CT DLP: 199.4 mGycm. Automated Exposure Control for Dose Reduction was Utilized. TECHNIQUE: CT scan of the thorax is performed following with IV Contrast, patient injected with 100 mL of Isovue 300. FINDINGS: LUNGS: Roughly 8 mm focus of irregular nodular consolidation left upper lobe axial image 24 on curren t study. There is 6-7 mm superior left lower lobe nodule axial image 29 with adjacent peripheral grou ndglass opacity. Mild linear scarring and/or atelectasis in both bases. No pleural effusion or pneumo thorax. MEDIASTINUM: There are no greater than 1 cm hilar or mediastinal lymph nodes. No cardiomegaly or p ericardial effusion is seen. OTHER: Underlying dextroconvex scoliotic curvature. More prominent levoconvex scoliosis in the mid pavan mbar spine on localizer. IMPRESSION: Small areas suspicious for acute infiltrate in the left lung. Correlate clinically. There is new 6 mm nodule in superior aspect left lower lobe. Advise CT follow-up in 6-12 months time to re assess as per Fleischner's recommendations.
== END | disposition home or self-care (01) ==
LOC: RADCTMAIN 08:56
PROVIDERS: ATTEND Internal Medicine Critical Care Medicine
DX: R91.1 Solitary pulmonary nodule (principal)
CPT/HCPCS: 82565; 84520; 71260; 36415; Q9967

== ENCOUNTER 2020-05-13 10:57 | Day surgery (SDC) | payer MEDICARE ==
[2020-05-09 15:01] VITALS: BMI 22.3
[~2020-05-13 10:57] MED LIST changes: +ALBUTEROL NEB (CONC) 2.5 MG/0.5 ML INHALATION ONE; +ATROPINE SULFATE 0.4 MG/ML 1 ML VIAL IM ONE; -LIDOCAINE 1% 20 ML VIAL (10MG/ML) FOR IV START INTRADERMA PRN; +LIDOCAINE 2% (PF) 20 MG/ML 5 ML VIAL INHALATION ONE; +LIDOCAINE VISCOUS 300 MG/15 ML CUP MUCOUS MEM ONE; +SODIUM CHLORIDE 0.9% 1,000 ML IV SCH
[2020-05-13 11:31] VITALS: RESP 16; TEMP 97.6
[2020-05-13] MEDS ORDERED: LIDOCAINE 1% (10MG/ML) FOR IV START INTRADERMA ONE (11:44)
[2020-05-13] MEDS ORDERED: PROPOFOL 10 MG/ML 20 ML VIAL IV ONE (12:04)
[2020-05-13] MEDS ORDERED: LIDOCAINE 2% INJ 20 MG/ML INTRATRACH ONE (12:11)
--- NOTE | 2020-05-13 12:46 | PCN ---
PROCEDURE NOTE PULMONARY/CRITICAL CARE PROCEDURE NOTE: PROCEDURE: Bronchoscopy, airway examination, therapeutic lavage, BAL right middle lobe and left upper lobe. Jarred Paz CRNA provided general anesthesia. The patient's procedure was done in room #2. There was informed consent and universal timeout. Reason for the procedure was chronic cough. PREOPERATIVE DIAGNOSIS: Chronic cough. POSTOPERATIVE DIAGNOSIS: Chronic cough. Again there was informed consent and universal timeout. After the patient was adequately sedated and being fully monitored, the bronchoscope was inserted through the right nostril. It passed through the right nasopharynx into the oropharynx. The hypopharynx was identified and topicalized. The hypopharyngeal structures, including anterior commissure, true cords, false cords, arytenoids, piriform sinuses, right and left valleculae and epiglottis, all appeared normal. After topicalization, bronchoscope was pushed through the glottic opening into the trachea. Trachea appeared normal. There was some minimal secretions noted in the trachea. The right and left mainstem were topicalized. The tracheal allyn was sharp. The right upper lobe and its 3 segments, right middle lobe and its 2 segments, right lower lobe and its 5 segments, left upper lobe proper and its 2 segments, lingula and its 2 segments and left lower lobe and its 4 segments all appeared to be relatively normal. Based on the CT scan results, we went ahead and did a BAL of the right middle lobe and also the left upper lobe; 30 mL were recovered from both areas. It was sent to the laboratory for analysis. There was no dominant mass or tumor. There was minimal mucosal erythema. There was no vascular engorgement or mucosal friability. The patient tolerated the procedure well and the bronchoscope was withdrawn. There was no immediate complications. MMODL / IJN: [id number] /
[2020-05-13 12:54] VITALS: BP 134/81; PULSE 75
[2020-05-13 18:56] LABS: Appearance,BF Clear; Color,BF Colorless; Nucleated Cells, Body Fluid 6 /uL; RBC, Body Fluid 98 /uL
[2020-05-13 21:43] LABS: Appearance,BF Clear; Color,BF Colorless; Nucleated Cells, Body Fluid 2 /uL; RBC, Body Fluid 286 /uL
== END 2020-05-13 13:00 | disposition home or self-care (01) ==
LOC: ORWHC2ENDO 10:57
PROVIDERS: ATTEND Internal Medicine Critical Care Medicine
DX: R05 Cough (principal); Z79.890 Hormone replacement therapy; Z79.899 Other long term (current) drug therapy; E03.9 Hypothyroidism, unspecified; F32.9 Major depressive disorder, single episode, unspecified; Z91.048 Other nonmedicinal substance allergy status; Z80.9 Family history of malignant neoplasm, unspecified; Z98.890 Other specified postprocedural states
CPT/HCPCS: 87798 ×3; 87496; 87498; 87529; 88108; 88305; 89050; 87252; 87502; 87634; 87070; 87205; 87116; 87102; 87206; 31624; J2001; J0461; J2704

== ENCOUNTER → 2020-06-23 | Outpatient (CLI) | payer MEDICARE | END | disposition home or self-care (01) | LOC: LABWHC1 12:29 | PROVIDERS: ATTEND Internal Medicine Critical Care Medicine | DX: R05 Cough (principal) | CPT/HCPCS: 36415; 86001; 86606; 86609 ==

== ENCOUNTER → 2021-02-24 | Outpatient (CLI) | payer MEDICARE ==
--- NOTE | 2021-02-24 13:49 | MM ---
Reason for exam: clinical finding. Last mammogram was performed 2 years ago. History: Patient is postmenopausal. Took estrogen for 6 years 7 months beginning at age 49. Took progesterone for 6 years 7 months beginning at age 49. Indicated problem(s): palpable abnormality in the right breast. Physical Findings: Nurse did not find any significant physical abnormalities on exam. MG 3D Diag Mammo W/Cad JUAN Bilateral CC and MLO view(s) were taken. Prior study comparison: March 07, 2019, bilateral MG 3d screening mammo w/cad. January 17, 2018, bilateral MG 3d screening mammo w/cad. There are scattered fibroglandular densities. There is chronic nodularity in the left breast. Asymmetric breast tissue right breast at area of concern, stable. There is no discrete abnormality. These results were verbally communicated with the patient and result sheet given to the patient on 02/24/21. ASSESSMENT: Benign, BI-RAD 2 RECOMMENDATION: Routine screening mammogram of both breasts in 1 year.
== END | disposition home or self-care (01) ==
LOC: RADMAMWWP 12:45
PROVIDERS: ATTEND Family Medicine
DX: N64.89 Other specified disorders of breast (principal); N63.10 Unspecified lump in the right breast, unspecified quadrant; N63.20 Unspecified lump in the left breast, unspecified quadrant; Z78.0 Asymptomatic menopausal state
CPT/HCPCS: 77066; G0279; 77062

== ENCOUNTER → 2021-03-10 | Outpatient (CLI) | payer MEDICARE ==
--- NOTE | 2021-03-10 17:15 | BD ---
EXAMINATION TYPE: Axial Bone Density DATE OF EXAM: 03/10/2021 COMPARISON: NONE CLINICAL HISTORY: Height: 5 FT 2 IN Weight: 131 FRAX RISK QUESTIONS: Alcohol (3 or more units per day): NO Family History (Parent hip fracture): NO Glucocorticoids (More than 3mos): NO (Ex: prednisone, prednisolone, methylprednisolone, dexamethasone, and hydrocortisone). History of Fracture in Adulthood: YES Secondary Osteoporosis: 1. Type 1 Diabetes: NO 2. Hyperthyroidism: NO 3. Menopause before 45: YES 4. Malnutrition: NO 5. Chronic liver disease: NO Rheumatoid Arthritis: NO Current Tobacco Use: NO RISK FACTORS HISTORY OF: Surgery to Spine/Hip(right/left)/Wrist (right/left): NO Family History of Osteoporosis: YES Active: YES Diet low in dairy products/other sources of calcium: NO Postmenopausal woman: EARLY 40'S Take estrogen and/or progesterone medications: TOOK HRT FOR SEV YEARS NO LONGER TAKES Lost more than 2 inches in height since high school: NO MEDICATIONS: Thyroid Medications: YES Which medication: LEVOTHYROXINE How Long: APPROX 7-8 YEARS Additional Medications: LEVOTHYROXINE,ZOLOFT, Additional History: EXAM MEASUREMENTS: Bone mineral densitometry was performed using the [employer] ([employer]) System. Bone mineral density as measured about the Lumbar spine is: ----- L1-L4(G/cm2): 1.322 T Score Values are as follows: ----- L2: 2.2 ----- L3: 1.3 ----- L4: 0.4 ----- L1-L4: 1.2 Bone mineral density has: DECREASED -0.2 % since study of: 2018 Bone mineral density about the R hip (g/cm2): 0.947 Bone mineral density about the L hip (g/cm2): 0.914 T Score values are as follows: -----R Neck: -0.7 -----L Neck: -0.9 -----R Total: -0.6 -----L Total: -0.9 Bone mineral density has: DECREASED -1.4 % since study of: 2018 IMPRESSION: Normal (Values between +1 and -1 indicate normal bone mass). Consider repeating this study in 5 year s or sooner if there is some new clinical indication. NOTE: T-SCORE=SD OF THE YOUNG ADULT MEAN.
== END | disposition home or self-care (01) ==
LOC: RADBDWWP 12:34
PROVIDERS: ATTEND Family Medicine
DX: Z78.0 Asymptomatic menopausal state (principal)
CPT/HCPCS: 77080

== ENCOUNTER → 2022-06-15 | Outpatient (CLI) | payer MEDICARE ==
--- NOTE | 2022-06-16 09:30 | MM ---
Reason for Exam: Screening (asymptomatic). Last mammogram was performed 1 year(s) and 4 month(s) ago. Patient History: Menarche at age 11. First Full-Term at age 29. Postmenopausal. Estrogen for 6 years, 7 months, from age 49 until age 55. Progesterone for 6 years, 7 months, from age 49 until age 55. Risk Values: Stephanie 5 year model risk: 2.1%. NCI Lifetime model risk: 5.6%. Prior Study Comparison: 01/17/2018 Bilateral Screening Mammogram, [facility]. 03/07/2019 Bilateral Screening Mammogram, [facility]. 02/24/2021 Bilateral Diagnostic Mammogram, [facility]. Tissue Density: There are scattered fibroglandular densities. Findings: Analyzed By CAD. There is no suspicious new group of microcalcifications or new suspicious mass in either breast. Overall Assessment: Negative, BI-RAD 1 Management: Screening Mammogram of both breasts in 1 year. A clinical breast exam by your physician is recommended on an annual basis and results should be correlated with mammographic findings. Electronically signed and approved by: Asa Gomes M.D.
== END | disposition home or self-care (01) ==
LOC: RADMAMWWP 13:28
PROVIDERS: ATTEND Family Medicine
DX: Z12.31 Encounter for screening mammogram for malignant neoplasm of breast (principal); Z78.0 Asymptomatic menopausal state
CPT/HCPCS: 77063; 77067

== ENCOUNTER → 2023-07-21 | Outpatient (CLI) | payer MEDICARE ==
--- NOTE | 2023-07-23 14:40 | BD ---
EXAMINATION TYPE: Axial Bone Density DATE OF EXAM: 07/21/2023 CLINICAL HISTORY: 73 years old Female. ICD-10 CODE: M85.9 DISORDER OF BONE DENSITY Height: 5 ft 2 in Weight: 130 FRAX RISK QUESTIONS: Alcohol (3 or more units per day): no Family History (Parent hip fracture): no Glucocorticoids (More than 3mos): no (Ex: prednisone, prednisolone, methylprednisolone, dexamethasone, and hydrocortisone). History of Fracture in Adulthood: yes Secondary Osteoporosis: 1. Type 1 Diabetes: no 2. Hyperthyroidism: no 3. Menopause before 45: yes 4. Malnutrition: no 5. Chronic liver disease: no Rheumatoid Arthritis: yes Current Tobacco Use: no RISK FACTORS HISTORY OF: Surgery to Spine/Hip(right/left)/Wrist (right/left): no Family History of Osteoporosis: yes Active: yes Diet low in dairy products/other sources of calcium: no Postmenopausal woman: yes Take estrogen and/or progesterone medications: none now Lost more than 2 inches in height since high school: no Frequent falls: no Poor Health: good Hyperparathyroidism: no Adrenal Insufficiency: no MEDICATIONS: Thyroid Medications: yes Which medication: levothyroxine How Lon years Additional Medications: levothyroxine, Hydroxychloroquine, duloxetine, Additional History: rt carpal tunnel EXAM MEASUREMENTS: Bone mineral densitometry was performed using the [employer] System. Bone mineral density as measured about the Lumbar spine is: ----- L1-L4(G/cm2): 1.346 T Score Values are as follows: ----- L1: 1.2 ----- L2: 2.0 ----- L3: 1.2 ----- L4: 1.2 ----- L1-L4: 1.4 Z Score Values are as follows: ----- L1: 3.1 ----- L2: 3.9 ----- L3: 3.1 ----- L4: 3.1 ----- L1-L4: 3.3 Bone mineral density has: increased 1.8 % since study of: 2020 Bone mineral density about the R hip (g/cm2): 0.898 Bone mineral density about the L hip (g/cm2): 0.875 T Score values are as follows: -----R Neck: -1.0 -----L Neck: -1.2 -----R Total: -0.9 -----L Total: -1.1 Z Score values are as follows: -----R Neck: 1.0 -----L Neck: 0.8 -----R Total: 0.9 -----L Total: 0.7 Bone mineral density has: decreased -3.2 % since study of: 2020 FRAX%s: The graph provided illustrates a 19.2 % chance for a major osteoporotic fx and a 3.0 % chance for the hips probability for fx in 10 years time. IMPRESSION: Osteopenia (T Score between -2.5 and -1). There is slightly increased risk of fracture and the patient may be considered for treatment. Re-Screen 2-5 years. NOTE: T-SCORE=SD OF THE YOUNG ADULT MEAN.
--- NOTE | 2023-07-23 15:48 | MM ---
Reason for Exam: Screening (asymptomatic). Last mammogram was performed 1 year(s) and 1 month(s) ago. Patient History: Menarche at age 11. First Full-Term at age 29. Postmenopausal. Estrogen for 6 years, 7 months, from age 49 until age 55. Progesterone for 6 years, 7 months, from age 49 until age 55. Risk Values: Stephanie 5 year model risk: 2.2%. NCI Lifetime model risk: 5.3%. Prior Study Comparison: 08/12/2016 Bilateral Screening Mammogram, [facility]. 01/17/2018 Bilateral Screening Mammogram, [facility]. 03/07/2019 Bilateral Screening Mammogram, [facility]. 02/24/2021 Bilateral Diagnostic Mammogram, [facility]. 06/15/2022 Bilateral MG 3D screening mammo w/cad, [facility]. Tissue Density: There are scattered fibroglandular densities. Findings: Analyzed By CAD. The pattern is symmetrical and stable. No significant interval changes. No suspicious groups of microcalcifications, spiculated or lobular masses, architectural distortion or other secondary signs of malignancy are mammographically apparent. Overall Assessment: Negative, BI-RAD 1 Management: Screening Mammogram of both breasts in 1 year. A negative mammogram report should not preclude additional follow up of suspicious palpable abnormalities. Patient should continue monthly self breast exam. A clinical breast exam by your physician is recommended on an annual basis and results should be correlated with mammographic findings. Electronically signed and approved by: Eh Dillard D.O. Radiologis
== END | disposition home or self-care (01) ==
LOC: RADMAMWWP 08:52
PROVIDERS: ATTEND Family Medicine
DX: Z12.31 Encounter for screening mammogram for malignant neoplasm of breast (principal); M85.852 Other specified disorders of bone density and structure, left thigh; Z78.0 Asymptomatic menopausal state
CPT/HCPCS: 77063; 77067; 77080

== ENCOUNTER → 2024-04-24 | Outpatient (CLI) | payer MEDICARE ==
--- NOTE | 2024-04-24 15:50 | CT ---
EXAMINATION TYPE: CT brain wo con CT DLP: 1147 mGycm, Automated exposure control for dose reduction was used. DATE OF EXAM: 04/24/2024 3:45 PM COMPARISON: 10/28/2013. CLINICAL INDICATION: Female, 73 years old with history of S00.83XA CONTUSION OF OTHER PART OF HEAD, H it head week and a half ago, pain in neck. TECHNIQUE: Brain: Axial CT images of the brain were obtained with coronal and sagittal reformats created and rev iewed. Contrast used: None. Oral contrast used: None. FINDINGS: Brain: Extra-axial spaces: No abnormal extra-axial fluid collections. Ventricular system: Dilatation in proportion to cerebral atrophy. Cerebral parenchyma: Mineralization of basal ganglia. Cerebral atrophy. No acute intraparenchymal hem orrhage or mass effect. The méndez-white junction is well differentiated. Cerebellum: Unremarkable. Mass effect: No evidence of midline shift. Intracranial vasculature: unremarkable Soft tissues: Normal. Calvarium/osseous structures: No depressed skull fracture. Paranasal sinuses and mastoid air cells: Mild scattered paranasal sinus disease. Visualized orbits: Orbital contents are intact. IMPRESSION: No acute intracranial process. [facility], , 04/24/2024 3:48 PM
== END | disposition home or self-care (01) ==
LOC: RADCTMAIN 15:27
PROVIDERS: ATTEND Family Medicine
CPT/HCPCS: 70450

== ENCOUNTER → 2024-08-02 | Outpatient (CLI) | payer MEDICARE ==
--- NOTE | 2024-08-02 12:08 | MM ---
Reason for Exam: Screening (asymptomatic). Last screening mammogram was performed 12 month(s) ago. Patient History: Menarche at age 11. First Full-Term at age 29. Postmenopausal. Estrogen for 6 years, 7 months, from age 49 until age 55. Progesterone for 6 years, 7 months, from age 49 until age 55. Risk Values: Stephanie 5 year model risk: 2.2%. NCI Lifetime model risk: 5.0%. Prior Study Comparison: 02/24/2021 Bilateral Diagnostic Mammogram, [facility]. 06/15/2022 Bilateral MG 3D screening mammo w/cad, [facility]. 07/21/2023 Bilateral MG 3D screening mammo w/cad, [facility]. Tissue Density: There are scattered areas of fibroglandular density. Findings: Analyzed By CAD. Subareolar asymmetric density right MLO view is unchanged. There is no suspicious group of microcalcifications or new suspicious mass in either breast. Overall Assessment: Benign, BI-RAD 2 Management: Screening Mammogram of both breasts in 1 year. Patient should continue monthly self-breast exams. A clinical breast exam by your physician is recommended on an annual basis. This exam should not preclude additional follow-up of suspicious palpable abnormalities. Note on Stephanie scores and lifetime risk: 1. A Stephanie score greater than 3% is considered moderate risk. If this is the case, consider specialist referral to assess eligibility for a risk reducing agent. 2. If overall lifetime risk for the development of breast cancer is 20% or higher, the patient may qualify for future screening with alternating mammogram and breast MRI. [facility], , 08/02/2024 12:03 PM. Electronically signed and approved by: Donnell Soto M.D. Radiologist
== END | disposition home or self-care (01) ==
LOC: RADMAMWWP 10:25
PROVIDERS: ATTEND Family Medicine
DX: Z12.31 Encounter for screening mammogram for malignant neoplasm of breast (principal); R92.323 Mammographic fibroglandular density, bilateral breasts; Z78.0 Asymptomatic menopausal state
CPT/HCPCS: 77063; 77067